=== PATIENT | male | born 1990 | race Two or more races ===

== ENCOUNTER 2016-12-28 04:14 | Emergency (ER) | payer SELFPAY ==
[~2016-12-28] VITALS: Ht 175.3 cm; Wt 79.4 kg
[2016-12-28] MEDS ORDERED: DEXAMETHASONE SOD PHOSPHATE 4 MG/ML VIAL IV ONE (04:30)
[2016-12-28] MEDS ORDERED: ALBUTEROL FS 2.5 MG/3 ML VIAL.NEB ONE (04:30)
[2016-12-28] MEDS ORDERED: ALBUTEROL FS 2.5 MG/3 ML VIAL.NEB CONTNEB ONE (04:30)
[2016-12-28] MEDS ORDERED: DEXAMETHASONE SOD PHOSPHATE 10 MG/ML VIAL ONE (04:35)
[2016-12-28 06:01] VITALS: BP 130/77
== END 2016-12-28 06:01 | disposition home or self-care (01) ==
LOC: ER 04:18
DX: J45.901 Unspecified asthma with (acute) exacerbation (principal)
CPT/HCPCS: A4606; J1100; Z7610